=== PATIENT | female | born 1990 | race Caucasian/White ===

== ENCOUNTER 2019-05-20 15:10 | Outpatient (CLI) | payer OTHER ==
[~2019-05-20] VITALS: Ht 157.5 cm; Wt 89.3 kg
[~2019-05-20 15:10] MED LIST: PREN-47 PO
[2019-05-20 16:32] VITALS: BP 117/60; PULSE 89; RESP 18; Ht 157.5 cm; Wt 89.3 kg
== END 2019-05-20 20:40 | disposition home or self-care (01) ==
LOC: OBT 15:10 → L-D 15:12 → OBT 20:40
PROVIDERS: ATTEND Obstetrics & Gynecology
DX: O26.893 Other specified pregnancy related conditions, third trimester (principal); Z3A.30 30 weeks gestation of pregnancy; R10.2 Pelvic and perineal pain; R19.7 Diarrhea, unspecified
CPT/HCPCS: 76815; 76817; 80053; 81001; 81003; 85025; Z7500; G0463